=== PATIENT | female | born 1990 | race Caucasian/White ===

== ENCOUNTER 2020-12-17 06:06 | Day surgery (SDC) | payer OTHER ==
[2020-12-17] MEDS ORDERED: CEPHALEXIN500 MG PO (08:18)
[2020-12-17] MEDS ORDERED: PERCOCET 5-3251 EACH PO (08:18)
[2020-12-17] MEDS ORDERED: PROTONIX40 MG PO (08:18)
== END 2020-12-17 13:55 | disposition home or self-care (01) ==
LOC: CIR.AMB 06:06
PROVIDERS: ATTEND Surgery
DX: L05.01 Pilonidal cyst with abscess (principal); Z20.822 Contact with and (suspected) exposure to COVID-19

== ENCOUNTER 2021-06-25 08:00 | Outpatient (CLI) | payer OTHER ==
[~2021-06-25 08:00] MED LIST: CEPHALEXIN500 MG PO; PERCOCET 5-3251 EACH PO; PROTONIX40 MG PO
== END 2021-06-25 08:30 | disposition home or self-care (01) ==
LOC: PPH VACUNA 08:00
PROVIDERS: ATTEND Emergency Medicine Pediatric Emergency Medicine
DX: Z23 Encounter for immunization (principal)